=== PATIENT | female | born 1955 | race Hispanic/Latino ===

== ENCOUNTER 2024-11-22 09:23 | Emergency (ER) | payer MEDICARE ==
[~2024-11-22] VITALS: Ht 165.1 cm; Wt 46.3 kg
[~2024-11-22 09:23] MED LIST: PANT40TA PO; PROM25TA7 PO
--- NOTE | 2024-11-22 09:45 | ERN ---
General Chief Complaint: Hiccups/Singultis Stated Complaint: EXCESSIVE HICCUPS Time Seen by MD: 09:23 History of Present Illness Initial Comments 69-year-old female who presents for epigastric discomfort, frequent belching, decreased oral intake. Patient reports that she has had this now for about 10 months pretty consistently. She was admitted about a week ago here at this hospital. She had an EGD which showed gastritis. She has been taking Protonix. When she left the hospital a couple of days ago she was feeling better. She said that she went home, and after eating she again feels the epigastric sensation and frequent belching. She used to take Thorazine for the belching and hiccups but has not taken it recently. Allergies: Coded Allergies: No Known Drug Allergies (Unverified Allergy, Unknown, 11/17/24) Home Meds Active Scripts Pantoprazole Sodium (Protonix) 40 Mg Tablet., 40 MG PO DAILY for 60 Days, #60 TAB Prov:SIMBA WEST [employer] WATCHMAN 11/19/24 Reported Medications Promethazine HCl (Promethazine HCl) 25 Mg Tablet, 1 TAB PO Q6HPRN PRN for nausea/vomiting for 7 Days, #28 TAB 0 Refills 11/17/24 Discontinued Reported Medications Nitrofurantoin Macrocrystal (Nitrofurantoin) 100 Mg Capsule, 100 MG PO BID for uti for 7 Days, #15 CAP 11/17/24 Omeprazole/Sodium Bicarbonate (Omeprazole-Bicarb 40-1,100 Cap) 40 Mg-1.1 Gram Capsule, 40 CAP PO DAILY for acid reflux for 30 Days, #30 CAP 0 Refills 11/17/24 Past Medical History Past Medical History: GERD Medical History Other: GASTROPARESIS Past Surgical History: BTL ROS Dictation CONSTITUTIONAL: No chills, no fever, no weakness, no diaphoresis, no malaise. HEAD/FACE: No signs of trauma. EENT: No eye pain, no blurred vision, no tearing, no double vision, no ear pain, no ear discharge, no nose pain, no nasal congestion, no throat pain, no throat swelling, no mouth pain. RESPIRATORY: No cough, no orthopnea, no SOB, no stridor, no wheezing. CARDIOVASCULAR: No chest pain, no edema, no palpitations, no syncope. GASTROINTESTINAL/ABDOMINAL: Epigastric pain nausea belching GENITOURINARY: No abnormal discharge, no dysuria, no frequent urination, no hematuria. No complaints of pain in the genitals. MUSCULOSKELETAL: No back pain, no gout, no joint pain, no joint swelling, no muscle pain, no muscle stiffness, no neck pain. INTEGUMENTARY: No change in color, no change in hair/nails, no dryness, no lesion, no lumps, no rash. NEUROLOGICAL/PSYCH: No anxiety, not depressed, no emotional problem, no headache, no numbness, no pre-existing deficit, no history of seizures, no tremors, no weakness. HEMATOLOGIC/LYMPHATIC: Not anemic, no history of blood clots, no apparent bleeding, no bruising, glands not swollen. All Systems Negative, Except as Noted. Physical Exam Physical Exam Dictation VITAL SIGNS: Reviewed. GENERAL APPEARANCE: Alert, oriented x3, no acute distress EYES: PERRL, pink conjunctivas, eyelid no trauma, anterior chamber clear. EARS: Pinnas intact and no signs of trauma or erythema. Ear canals clear and no discharge. TMs no erythema. NOSE: No discharge, no bleeding. OROPHARYNX: Mouth normal, teeth no caries, tongue pink. Pharynx clear, no erythema. Tonsils no exudates, no abscesses noted. Mucous membrane moist. NECK: Supple, non-tender, no thyromegaly, no masses, no JVD, no bruits. BREAST: Deferred. CHEST: No tenderness, no crepitus, no paradoxical movement, no retractions. LUNGS: Clear, well-ventilated, symmetric, no rales, no wheezing, no rhonchi, no stridor, good breath sounds bilaterally. HEART: Regular rate, regular rhythm, no murmur, no gallops. VASCULAR: No peripheral edema. ABDOMEN: Soft, positive bowel sounds, nondistended, no guarding, nontender, no rebound, no masses no hepatomegaly, no splenomegaly, no Thompson's sign, no hernias. RECTAL: Deferred. GENITAL: Deferred. NEUROLOGICAL: Normal speech, gross motor function intact, gross sensory function intact. MUSCULOSKELETAL: Neck nontender, full range of motion, back nontender, full ra nge of motion. EXTREMITIES: Nontender, full range of motion. SKIN: Color pink, dry, no turgor, no rash, no lacerations, no abrasions, no contusions. LYMPHATICS: Deferred. Results Laboratory and Microbiology Lab and Micro Result Laboratory Tests Test 11/22/24 09:48 White Blood Count 5.1 K/uL (4.8-10.8) Red Blood Count 5.25 MIL/uL (4.00-5.50) Hemoglobin 13.3 g/dL (12.0-16.0) Hematocrit 42.2 % (36-48) Mean Corpuscular Volume 80.4 fL (79-99) Mean Corpuscular Hemoglobin 25.3 pg (27.0-33.0) L Mean Corpuscular Hemoglobin Concent 31.5 g/dL (32.0-36.0) L Red Cell Distribution Width 15.1 % (11.0-15.5) Platelet Count 197 K/uL (130-400) Mean Platelet Volume 9.9 fL (7.5-10.5) Immature Granulocyte % (Auto) 0.2 % (0-1) Neutrophils (%) (Auto) 63.5 % (40.0-77.0) Lymphocytes (%) (Auto) 27.8 % (21.0-51.0) Monocytes (%) (Auto) 7.9 % (3.0-13.0) Eosinophils (%) (Auto) 0.2 % (0.0-8.0) Basophils (%) (Auto) 0.4 % (0.0-5.0) Neutrophils # (Auto) 3.2 K/uL (1.8-7.7) Lymphocytes # (Auto) 1.4 K/uL (1.0-4.8) Monocytes # (Auto) 0.4 K/uL (0.1-1.0) Eosinophils # (Auto) 0.01 K/uL (0.00-0.70) Basophils # (Auto) 0.02 K/uL (0.00-0.20) Absolute Immature Granulocyte (auto 0.01 K/uL (0-1) Nucleated Red Blood Cells 0.0 % (0.0-0.19) Sodium Level 136 mmol/L (136-145) Potassium Level 4.0 mmol/L (3.5-5.1) Chloride Level 99 mmol/L (101-111) L Carbon Dioxide Level 27 mmol/L (21-32) Blood Urea Nitrogen 9 mg/dL (7-18) Creatinine 0.8 mg/dL (0.5-1.0) Glomerular Filtration Rate Calc 80 mL/min (>90) Random Glucose 124 mg/dL (70-105) H Total Calcium 8.8 mg/dL (8.5-10.1) Total Bilirubin 0.6 mg/dL (0.2-1.0) Direct Bilirubin 0.2 mg/dL (0.0-0.3) Aspartate Amino Transf (AST/SGOT) 25 U/L (10-37) Alanine Aminotransferase (ALT/SGPT) 20 U/L (12-78) Alkaline Phosphatase 60 U/L (50-136) Total Protein 7.5 g/dL (6.0-8.3) Albumin 4.2 g/dL (3.5-5.0) Lipase 34 U/L (16-77) MDM CC: Nausea or vomiting belching Historian: Patient Comorbidities: Gastritis Limitations by social determinants of health: None Differential diagnosis: Dehydration, gastritis, surgical pathology, other Vital signs: Stable remained stable in the ER Labs (independently interpreted by me ): No leukocytosis or anemia. Chemistry panel unremarkable. Liver enzymes are stable lipase is stable. External chart review: Patient was had an EGD done few days ago by Dr. Nguyen, esophagitis and gastritis found. Likely the source. No bleeding ulcers. I also reviewed the CT scan of the abdomen and pelvis which did not show any acute abnormalities. She had a HIDA scan which is unremarkable. Treatment in ED: 1 L lactated Ringer's, GI cocktail, Reglan, Thorazine. Re-evaluation: Patient reports improvement of symptoms but she was still very nauseous and vomiting and belching. She was currently not feel tolerant. I did discuss the plan with the family. They prefer admission for IV hydration and trial of antiemetics to ensure that she was p.o. tolerant. After I called for admission, the patient changed her mind. She no longer wants to stay in the hospital. She has follow up scheduled with Dr Perfecto FLORES in 10 days. I will send her home with lalo, recommend returning to the ED as needed. ED Course Orders Procedure Category Date Status Time Chlorpromazine Hcl PHA 11/22/24 Complete (Thorazine 25mg Tab) 10:00 Cbc With Differential LAB 11/22/24 Complete 09:37 Lactated Ringers PHA 11/22/24 Complete 1000ml (Lactated 10:00 Mag/Alum/Simeth 30ml PHA 11/22/24 Complete (Maalox Plus 30ml) 10:00 Dicyclomine Hcl PHA 11/22/24 Complete (Bentyl 10mg/5ml 10:00 Lipase LAB 11/22/24 Complete 09:37 Basic Metabolic Panel LAB 11/22/24 Complete 09:37 Hepatic Function Panel LAB 11/22/24 Complete 09:45 Metoclopramide 10 PHA 11/22/24 Complete Mg/2 Ml Vial (Reglan 1 11:00 Current Medications Medications (Trade) Dose Ordered Sig/Adelia Route PRN Reason Start Time Stop Time Status Last Admin Dose Admin Al Hydroxide/Mg Hydroxide (MAALox PLUS 30ML) 30 ml ONCE ONCE PO 11/22/24 10:00 11/22/24 10:01 DC 11/22/24 09:53 Chlorpromazine HCl (ThorAZINE 25MG TAB) 25 mg ONCE ONCE PO 11/22/24 10:00 11/22/24 10:01 DC 11/22/24 09:54 Dicyclomine HCl (Bentyl 10mg/5ml Syrup) 10 mg ONCE ONCE PO 11/22/24 10:00 11/22/24 10:01 DC 11/22/24 09:54 Lactated Ringer's 1,000 ml @ 0 mls/hr ONCE ONCE IV 11/22/24 10:00 11/22/24 10:01 DC 11/22/24 09:56 Metoclopramide HCl (regLAN 10MG IV) 10 mg ONCE ONCE IVP 11/22/24 11:00 11/22/24 11:01 DC Vital Signs Date Time Temp Pulse Resp B/P (MAP) Pulse Ox O2 Delivery O2 Flow Rate FiO2 11/22/24 10:56 97.9 95 22 142/70 98 Room Air* 0 21 11/22/24 09:30 97.5 80 24 151/70 98 Room Air* 0 21 11/22/24 09:23 98.6 93 20 120/67 99 Room Air 0 DX & DISP Disposition: Discharge Departure Impression: Primary Impression: Gastritis Additional Impression: Acute dehydration Condition: Stable Scripts Metoclopramide HCl (Reglan) 5 Mg Tab 1 TAB PO TIDP PRN for NAUSEA for 10 Days, #20 TAB 0 Refills Prov: HAI ZAMORA DO 11/22/24 Additional Instructions: Your symptoms are consistent with a gastritis. Be sure to eat a high-fiber diet. Continue taking the pantoprazole he had been prescribed. I have prescribed Reglan, which you can use as needed for nausea and vomiting. Please continue with your outpatient workup with Dr. Grove. Return to the emergency department as needed. Referrals: ALBERTO CURTIS MD (PCP) HAI ZAMORA DO Nov 22, 2024 09:45
[2024-11-22] MEDS: MAG/ALUM/SIMETH 30 ML UDCUP PO ONE (09:53)
[2024-11-22] MEDS: chlorproMAZINE HCL 25 MG TAB PO ONE (09:54)
[2024-11-22] MEDS: DICYCLOMINE HCL 10 MG/5 ML ML PO ONE (09:54)
[2024-11-22 09:56] LABS: BASOPHILS # (AUTO) 0.02 K/uL (0.00-0.20); BASOPHILS % (AUTO) 0.4 % (0.0-5.0); EOSINOPHILS # (AUTO) 0.01 K/uL (0.00-0.70); EOSINOPHILS % (AUTO) 0.2 % (0.0-8.0); HEMATOCRIT 42.2 % (36-48); IMMATURE GRANULOCYTE ABSOLUTE 0.01 K/uL (0-1); LYMPHOCYTES # (AUTO) 1.4 K/uL (1.0-4.8); LYMPHOCYTES % (AUTO) 27.8 % (21.0-51.0); MEAN CORPUSCULAR HEMOGLOBIN 25.3 pg (27.0-33.0); MEAN CORPUSCULAR HGB CONC 31.5 g/dL (32.0-36.0); MEAN CORPUSCULAR VOLUME 80.4 fL (79-99); MONOCYTES # (AUTO) 0.4 K/uL (0.1-1.0); MONOCYTES % (AUTO) 7.9 % (3.0-13.0); NEUTROPHILS # (AUTO) 3.2 K/uL (1.8-7.7); NEUTROPHILS % (AUTO) 63.5 % (40.0-77.0); PLATELET COUNT (AUTO) 197 K/uL (130-400); RED BLOOD CELL COUNT(AUTO) 5.25 MIL/uL (4.00-5.50); RED CELL DISTRIBUTION WIDTH 15.1 % (11.0-15.5); WHITE BLOOD COUNT (AUTO) 5.1 K/uL (4.8-10.8)
[2024-11-22] MEDS: LACTATED RINGERS 1000ML 1,000 ML IV ONE (09:56)
[2024-11-22 10:03] LABS: CREATININE 0.8 mg/dL (0.5-1.0)
[2024-11-22 10:09] LABS: ALBUMIN 4.2 g/dL (3.5-5.0); BILIRUBIN,DIRECT 0.2 mg/dL (0.0-0.3); BILIRUBIN,TOTAL 0.6 mg/dL (0.2-1.0); TOTAL PROTEIN, SERUM 7.5 g/dL (6.0-8.3)
[2024-11-22] MEDS: metoCLOPRAmide 10 MG/2 ML VIAL IVP ONE (10:49)
[2024-11-22 10:56] VITALS: O2SAT 98
[2024-11-22] MEDS ORDERED: METO5 PO (11:47)
--- NOTE | 2024-11-22 12:00 | NUR ---
patient no longer with hiccups and beltching, states she feels better, decided she would rather go home and not be admitted, being that she has already been admitted for this before and has had a full GI work up, will keep her GI appt for later this month
[2024-11-22 12:03] VITALS: BP 125/65; PULSE 94; RESP 18; TEMP 98
[2024-11-22] MEDS ORDERED: CHLO25 PO (12:11)
== END 2024-11-22 12:29 | disposition home or self-care (01) ==
LOC: EDH 09:23
DX: K29.70 Gastritis, unspecified, without bleeding (principal); E86.0 Dehydration; K21.9 Gastro-esophageal reflux disease without esophagitis; Z79.899 Other long term (current) drug therapy
CPT/HCPCS: 99284; 96360; 96361; 80076; 80048; 83690; 85025; 36415; J7120; Q0161; J2765